=== PATIENT | female | born 1990 | race Caucasian/White ===

== ENCOUNTER 2018-04-02 12:30 | Inpatient (IN) | END 2018-04-08 18:25 | disposition home or self-care (01) | DRG 782 ==

== ENCOUNTER 2018-04-11 10:40 | Outpatient (CLI) | END 2018-04-11 12:07 | disposition home or self-care (01) ==

== ENCOUNTER 2018-05-23 18:10 | Inpatient (IN) | END 2018-05-26 14:15 | disposition home or self-care (01) | DRG 775 ==